=== PATIENT | female | born 1935 | race Caucasian/White ===

== ENCOUNTER 2017-06-11 04:36 | Outpatient (CLI) | payer MEDICARE, MEDICAID | END 2017-06-11 23:59 | disposition home or self-care (01) | LOC: DIABETIC 04:36 | PROVIDERS: ATTEND Internal Medicine | DX: E11.21 Type 2 diabetes mellitus with diabetic nephropathy (principal); E11.22 Type 2 diabetes mellitus with diabetic chronic kidney disease; I12.9 Hypertensive chronic kidney disease with stage 1 through stage 4 chronic kidney disease, or unspecified chronic kidney disease; N18.9 Chronic kidney disease, unspecified; Z85.828 Personal history of other malignant neoplasm of skin | CPT/HCPCS: G0108 ==

== ENCOUNTER 2017-09-20 01:49 | Outpatient (CLI) | payer MEDICARE, MEDICAID | END 2017-09-20 23:59 | disposition home or self-care (01) | LOC: DIABETIC 01:49 | PROVIDERS: ATTEND Internal Medicine | DX: E11.65 Type 2 diabetes mellitus with hyperglycemia (principal); E11.22 Type 2 diabetes mellitus with diabetic chronic kidney disease; E11.21 Type 2 diabetes mellitus with diabetic nephropathy; I12.9 Hypertensive chronic kidney disease with stage 1 through stage 4 chronic kidney disease, or unspecified chronic kidney disease; N18.9 Chronic kidney disease, unspecified | CPT/HCPCS: G0108 ==

== ENCOUNTER 2018-06-24 19:13 | Emergency (ER) | payer MEDICARE, MEDICAID ==
[~2018-06-24] VITALS: Ht 160 cm; Wt 73.0 kg
[2018-06-24 19:26] VITALS: BP 160/82
--- NOTE | 2018-06-24 21:22 | NUR ---
pt is resting quietly on gurney, c/o itching and burning to LLQ "under my panus...I have been losing weight", waiting to be evaluated by provider
[2018-06-24] MEDS ORDERED: clotrimazole topical cream 15gm tube TP SCH (21:30)
[2018-06-24] MEDS ORDERED: clotrimazole topical cream 15gm tube TP ONE (21:30)
[2018-06-24] MEDS ORDERED: [UNRECOGNIZED DRUG - CODE] TOP (21:31)
== END 2018-06-24 21:42 | disposition home or self-care (01) ==
LOC: ER 19:13
DX: M79.3 Panniculitis, unspecified (principal); E11.9 Type 2 diabetes mellitus without complications; Z88.1 Allergy status to other antibiotic agents; Z91.048 Other nonmedicinal substance allergy status; Z88.8 Allergy status to other drugs, medicaments and biological substances; Z79.899 Other long term (current) drug therapy
CPT/HCPCS: 99282

== ENCOUNTER 2018-08-17 09:50 | Emergency (ER) | payer OTHER, MEDICARE, MEDICAID ==
[~2018-08-17] VITALS: Ht 160 cm; Wt 69.5 kg
[~2018-08-17 09:50] MED LIST: [UNRECOGNIZED DRUG - CODE] TOP
[2018-08-17 10:18] VITALS: BP 162/64
[2018-08-17] MEDS ORDERED: HYDR-4383 PO (11:28)
== END 2018-08-17 11:35 | disposition home or self-care (01) ==
LOC: ER 09:50
DX: S16.1XXA Strain of muscle, fascia and tendon at neck level, initial encounter (principal); E11.9 Type 2 diabetes mellitus without complications; Z88.1 Allergy status to other antibiotic agents; Z88.8 Allergy status to other drugs, medicaments and biological substances; V49.88XA Car occupant (driver) (passenger) injured in other specified transport accidents, initial encounter; Y93.89 Activity, other specified; Y92.413 State road as the place of occurrence of the external cause; Y99.9 Unspecified external cause status
CPT/HCPCS: 72125; 93005; 99284

== ENCOUNTER 2019-10-20 14:39 | Emergency (ER) | payer MEDICARE, MEDICAID ==
[~2019-10-20] VITALS: Ht 160 cm; Wt 65.0 kg
[~2019-10-20 14:39] MED LIST changes: +HYDR-4383 PO
--- NOTE | 2019-10-20 14:58 | NUR ---
Cold pack placed to forehead as ordered; Pt refused ice for knees.
[2019-10-20] MEDS ORDERED: TETanus/Pertussis (Acell)/Diphther VAC/PF (Tdap-Adult) 0.5ml syringe IMVAC ONE (16:15)
[2019-10-20] MEDS ORDERED: acetaminophen 325mg tablet PO ONE (16:15)
[2019-10-20 16:28] VITALS: BP 167/67
== END 2019-10-20 16:41 | disposition home or self-care (01) ==
LOC: ER 14:39
DX: S61.411A Laceration without foreign body of right hand, initial encounter (principal); S00.83XA Contusion of other part of head, initial encounter; E11.9 Type 2 diabetes mellitus without complications; Z88.2 Allergy status to sulfonamides; Z88.8 Allergy status to other drugs, medicaments and biological substances; Z79.899 Other long term (current) drug therapy; W18.39XA Other fall on same level, initial encounter; Y93.89 Activity, other specified; Y92.89 Other specified places as the place of occurrence of the external cause; Y99.8 Other external cause status
CPT/HCPCS: 70450; 72125; 90471; 90715; 99285

== ENCOUNTER 2020-11-12 16:38 | Emergency (ER) | payer MEDICARE, MEDICAID ==
[~2020-11-12 16:38] MED LIST changes: +AMIT-1 PO; +AMLO10TA13 PO; +ASPI-1397 PO; +ATOR40TA72 PO; +CALC1TAB PO; +CITA20TA27 PO; +CYAN50009 PO; +DOCU100C40 PO; +FERR-39 PO; +FLUT16SP8 BOTHNARES; -HYDR-4383 PO; +LEVO50TA8 PO; +LINA5TAB4 PO; +LORA10TA7 PO; +LUTE1CAP5 PO; +METF-436 PO; +MULT-1141 PO; +OMEG-133 PO; +OMEP-50 PO; +OXYB10TA4 PO; +PROP10DR4 OP; +VALS160T30 PO; -[UNRECOGNIZED DRUG - CODE] TOP
[2020-11-12 17:27] LABS: BASOPHILS % (AUTO) 0.5 % (0-1); EOSINOPHILS # (AUTO) 0.2 X10'3 (0-0.9); EOSINOPHILS % (AUTO) 1.9 % (0-6); HEMATOCRIT 37.4 % (35.0-45.0); HEMOGLOBIN 12.1 g/dl (12.0-16.0); LYMPHOCYTES % (AUTO) 32.9 % (21-51); MEAN CORPUSCULAR HEMOGLOBIN 26.8 PG (27.0-31.0); MEAN CORPUSCULAR HGB CONC 32.4 g/dL (33.0-36.5); MEAN CORPUSCULAR VOLUME 82.9 FL (78-98); MEAN PLATELET VOLUME 7.4 FL (7.4-10.4); MONOCYTES # (AUTO) 0.8 X10'3 (0-0.9); MONOCYTES % (AUTO) 8.1 % (2-12); NEUTROPHILS # (AUTO) 5.2 X10'3 (1.8-7.7); NEUTROPHILS % (AUTO) 56.6 % (42-75); PLATELET COUNT 273 X10'3 (140-440); RED BLOOD COUNT 4.51 X10'6 (4.20-5.60); RED CELL DISTRIBUTION WIDTH 15.5 % (11.5-14.5); WHITE BLOOD COUNT 9.3 X10'3 (4.5-11.0)
[2020-11-12 17:46] LABS: ALANINE AMINOTRANSFERASE 15 U/L (12-78); ALBUMIN 3.6 G/DL (3.4-5.0); ALBUMIN/GLOBULIN RATIO 0.9 (1.1-1.5); ALKALINE PHOSPHATASE 75 IU/L (46-116); ANION GAP 12 (8-16); ASPARTATE AMINO TRANSFERASE 15 U/L (10-37); BILIRUBIN,TOTAL 0.3 MG/DL (0.1-1.0); BLOOD UREA NITROGEN 29 MG/DL (7-18); BUN/CREATININE RATIO 23.4 (6.6-38.0); CALCIUM 10.8 MG/DL (8.5-10.1); CHLORIDE 105 MMOL/L (99-107); CREATININE 1.24 MG/DL (0.40-0.90); GLUCOSE 139 MG/DL (70-104); POTASSIUM 4.9 MMOL/L (3.5-5.1); SODIUM 140 MMOL/L (135-145); TOTAL CARBON DIOXIDE 23.2 MMOL/L (24-32); TOTAL PROTEIN 7.5 G/DL (6.4-8.2); eGFR 41 ML/MIN
[2020-11-12 18:11] VITALS: BP 139/69
== END 2020-11-12 18:53 | disposition home or self-care (01) ==
LOC: ER 16:40
DX: E11.22 Type 2 diabetes mellitus with diabetic chronic kidney disease (principal); N18.32 Chronic kidney disease, stage 3b; Z79.82 Long term (current) use of aspirin; Z79.899 Other long term (current) drug therapy; Z88.2 Allergy status to sulfonamides; Z91.048 Other nonmedicinal substance allergy status; Z88.8 Allergy status to other drugs, medicaments and biological substances
CPT/HCPCS: 36415; 80053; 85025; 99284

== ENCOUNTER → 2021-02-08 | Emergency (ER) | payer MEDICARE, MEDICAID ==
[~2021-02-08] VITALS: Ht 162.6 cm; Wt 65.6 kg
[~2021-02-08] MED LIST changes: +CEPH-585 PO; +CefTRIAXone 2gm/D5W 50ml BAG 50 ML IV ONE; +metoprolol tartrate 50mg tablet PO ONE; +normal saline 1000ML IV soln IVB ONE
[2021-02-08 18:02] LABS: CLARITY,URINE SLIGHTLY CLOUDY (Clear); COLOR,URINE STRAW (Yellow); GLUCOSE, URINE NEGATIVE (Neg); KETONES,URINE NEGATIVE (Neg); LEUKOCYTE ESTERASE ,URINE LARGE (Neg); NITRITES, URINE NEGATIVE (Neg); OCCULT BLOOD,URINE SMALL (Neg); PH,URINE 5.5 (4.8-8.0); PROTEIN,URINE NEGATIVE (Neg); UA COLLECTION TYPE CLN CATCH MIDSTREAM; UROBILINOGEN,URINE 0.2 E.U/dL (0.2-1.0)
[2021-02-08 18:05] LABS: BASOPHILS # (AUTO) 0.1 X10'3 (0-0.2); BASOPHILS % (AUTO) 0.9 % (0-1); EOSINOPHILS # (AUTO) 0.2 X10'3 (0-0.9); EOSINOPHILS % (AUTO) 2.3 % (0-6); HEMATOCRIT 36.3 % (35.0-45.0); LYMPHOCYTES # (AUTO) 2.9 X10'3 (1.1-4.8); LYMPHOCYTES % (AUTO) 27.7 % (21-51); MEAN CORPUSCULAR HEMOGLOBIN 27.7 PG (27.0-31.0); MEAN CORPUSCULAR HGB CONC 33.2 g/dL (33.0-36.5); MEAN CORPUSCULAR VOLUME 83.4 FL (78-98); MEAN PLATELET VOLUME 7.3 FL (7.4-10.4); MONOCYTES % (AUTO) 9.2 % (2-12); NEUTROPHILS # (AUTO) 6.3 X10'3 (1.8-7.7); NEUTROPHILS % (AUTO) 59.9 % (42-75); PLATELET COUNT 272 X10'3 (140-440); RED BLOOD COUNT 4.35 X10'6 (4.20-5.60); RED CELL DISTRIBUTION WIDTH 14.5 % (11.5-14.5); WHITE BLOOD COUNT 10.5 X10'3 (4.5-11.0)
[2021-02-08 18:10] LABS: BACTERIA,URINE 1+ /HPF (Neg); MUCUS STRANDS NONE SEEN /LPF (Neg); SQUAMOUS EPITHELIAL CELL,UR FEW /LPF (FEW); WBC,URINE TNTC /HPF (0-4)
[2021-02-08 18:19] LABS: ALANINE AMINOTRANSFERASE 23 U/L (12-78); ALBUMIN 3.4 G/DL (3.4-5.0); ALKALINE PHOSPHATASE 86 IU/L (46-116); ANION GAP 9 (8-16); ASPARTATE AMINO TRANSFERASE 16 U/L (10-37); BILIRUBIN,TOTAL 0.2 MG/DL (0.1-1.0); BLOOD UREA NITROGEN 29 MG/DL (7-18); BUN/CREATININE RATIO 26.4 (6.6-38.0); CALCIUM 9.9 MG/DL (8.5-10.1); CHLORIDE 107 MMOL/L (99-107); GLUCOSE 147 MG/DL (70-104); POTASSIUM 4.9 MMOL/L (3.5-5.1); SODIUM 142 MMOL/L (135-145); TOTAL CARBON DIOXIDE 26.4 MMOL/L (24-32); TOTAL PROTEIN 6.9 G/DL (6.4-8.2); eGFR 47 ML/MIN
[2021-02-08 22:22] VITALS: BP 204/85
== END | disposition home or self-care (01) ==
LOC: ER 16:37
DX: N39.0 Urinary tract infection, site not specified (principal); R30.0 Dysuria; R10.30 Lower abdominal pain, unspecified; I10 Essential (primary) hypertension; E11.9 Type 2 diabetes mellitus without complications; Z87.440 Personal history of urinary (tract) infections; Z85.9 Personal history of malignant neoplasm, unspecified; Z88.1 Allergy status to other antibiotic agents; Z88.8 Allergy status to other drugs, medicaments and biological substances; Z79.82 Long term (current) use of aspirin; Z79.2 Long term (current) use of antibiotics; Z79.899 Other long term (current) drug therapy
CPT/HCPCS: 36415; 80053; 81001; 82948; 85025; 87088; 96374; 99283; J0696; J7030

== ENCOUNTER 2021-04-05 09:56 | Emergency (ER) | payer MEDICARE, MEDICAID ==
[~2021-04-05] VITALS: Ht 162.6 cm; Wt 69.5 kg
[~2021-04-05 09:56] MED LIST changes: -CefTRIAXone 2gm/D5W 50ml BAG 50 ML IV ONE; -metoprolol tartrate 50mg tablet PO ONE; -normal saline 1000ML IV soln IVB ONE
[2021-04-05 10:05] VITALS: BP 157/65
[2021-04-05] MEDS ORDERED: LIDOcaine 4% (40 mg/ml) topical solution 50ml TP ONE (10:20)
[2021-04-05] MEDS ORDERED: LIDOcaine/PRILOcaine 5gm cream TP ONE (11:15)
== END 2021-04-05 12:07 | disposition home or self-care (01) ==
LOC: ER 09:57
DX: S61.411A Laceration without foreign body of right hand, initial encounter (principal); I10 Essential (primary) hypertension; E11.9 Type 2 diabetes mellitus without complications; Z87.440 Personal history of urinary (tract) infections; Z85.9 Personal history of malignant neoplasm, unspecified; Z88.1 Allergy status to other antibiotic agents; Z88.8 Allergy status to other drugs, medicaments and biological substances; Z79.82 Long term (current) use of aspirin; Z79.2 Long term (current) use of antibiotics; Z79.899 Other long term (current) drug therapy; W18.30XA Fall on same level, unspecified, initial encounter; Y93.89 Activity, other specified; Y92.89 Other specified places as the place of occurrence of the external cause; Y99.8 Other external cause status
CPT/HCPCS: 12002; 99284

== ENCOUNTER 2021-05-08 08:42 | Emergency (ER) | payer MEDICARE, MEDICAID ==
[~2021-05-08] VITALS: Ht 160 cm; Wt 59.6 kg
[2021-05-08 08:50] VITALS: BP 143/71
[2021-05-08] MEDS ORDERED: LIDOcaine 2% 5ml jelly TOP ONE (11:15)
[2021-05-08] MEDS ORDERED: acetaminophen 325mg tablet PO ONE (12:00)
[2021-05-08] MEDS ORDERED: CEPH500C2 PO (13:53)
== END 2021-05-08 14:04 | disposition home or self-care (01) ==
LOC: ER 08:42
DX: S51.812A Laceration without foreign body of left forearm, initial encounter (principal); S00.83XA Contusion of other part of head, initial encounter; R51.9 Headache, unspecified; I10 Essential (primary) hypertension; E11.9 Type 2 diabetes mellitus without complications; Z87.440 Personal history of urinary (tract) infections; Z85.9 Personal history of malignant neoplasm, unspecified; Z88.1 Allergy status to other antibiotic agents; Z88.8 Allergy status to other drugs, medicaments and biological substances; Z79.82 Long term (current) use of aspirin; Z79.2 Long term (current) use of antibiotics; Z79.899 Other long term (current) drug therapy; W06.XXXA Fall from bed, initial encounter; Y93.89 Activity, other specified; Y92.89 Other specified places as the place of occurrence of the external cause; Y99.8 Other external cause status
CPT/HCPCS: 70450; 72125; 99285

== ENCOUNTER 2022-02-13 14:24 | Emergency (ER) | payer MEDICARE, MEDICAID ==
[~2022-02-13] VITALS: Ht 160 cm; Wt 70.5 kg
[~2022-02-13 14:24] MED LIST changes: -CEPH-585 PO; -OMEP-50 PO; +OMEP20CA16 PO
[2022-02-13 14:31] VITALS: BP 129/62
[2022-02-13] MEDS ORDERED: acetaminophen 325mg tablet PO ONE (17:00)
[2022-02-13] MEDS ORDERED: LIDOcaine/PRILOcaine 5gm cream TP ONE (17:00)
[2022-02-13] MEDS ORDERED: ACET-1025 PO (17:57)
[2022-02-13] MEDS ORDERED: LIDO30CR TOP (17:57)
== END 2022-02-13 18:18 | disposition home or self-care (01) ==
LOC: ER 14:25
DX: S80.02XA Contusion of left knee, initial encounter (principal); S80.01XA Contusion of right knee, initial encounter; S20.212A Contusion of left front wall of thorax, initial encounter; I10 Essential (primary) hypertension; E11.9 Type 2 diabetes mellitus without complications; Z88.2 Allergy status to sulfonamides; Z79.82 Long term (current) use of aspirin; Z88.8 Allergy status to other drugs, medicaments and biological substances; Z79.1 Long term (current) use of non-steroidal anti-inflammatories (NSAID); Z79.899 Other long term (current) drug therapy; Z87.448 Personal history of other diseases of urinary system; Z79.2 Long term (current) use of antibiotics; W18.39XA Other fall on same level, initial encounter; Y92.89 Other specified places as the place of occurrence of the external cause; Y93.89 Activity, other specified; Y99.8 Other external cause status
CPT/HCPCS: 74176; 99284

== ENCOUNTER 2022-05-10 20:52 | Emergency (ER) | payer MEDICARE, MEDICAID ==
[~2022-05-10] VITALS: Ht 160 cm; Wt 69.5 kg
[~2022-05-10 20:52] MED LIST changes: +LIDO30CR TOP
[2022-05-10 22:04] LABS: ALANINE AMINOTRANSFERASE 27 U/L (12-78); ALBUMIN 3.5 G/DL (3.4-5.0); ALBUMIN/GLOBULIN RATIO 0.9 (1.1-1.5); ALKALINE PHOSPHATASE 89 IU/L (46-116); ANION GAP 13 (8-16); ASPARTATE AMINO TRANSFERASE 20 U/L (10-37); BILIRUBIN,TOTAL 0.2 MG/DL (0.1-1.0); BLOOD UREA NITROGEN 30 MG/DL (7-18); BUN/CREATININE RATIO 23.4 (6.6-38.0); CALCIUM 10.9 MG/DL (8.5-10.1); CHLORIDE 105 MMOL/L (99-107); CREATININE 1.28 MG/DL (0.40-0.90); GLUCOSE 174 MG/DL (70-104); POTASSIUM 3.8 MMOL/L (3.5-5.1); SODIUM 141 MMOL/L (135-145); TOTAL CARBON DIOXIDE 23.5 MMOL/L (24-32); TOTAL PROTEIN 7.2 G/DL (6.4-8.2); eGFR 40 ML/MIN
[2022-05-10 22:12] LABS: BASOPHILS # (AUTO) 0.1 X10'3 (0-0.2); BASOPHILS % (AUTO) 0.8 % (0-1); EOSINOPHILS # (AUTO) 0.2 X10'3 (0-0.9); EOSINOPHILS % (AUTO) 2.1 % (0-6); HEMATOCRIT 35.7 % (35.0-45.0); HEMOGLOBIN 11.9 g/dl (12.0-16.0); LYMPHOCYTES # (AUTO) 3.6 X10'3 (1.1-4.8); LYMPHOCYTES % (AUTO) 37.7 % (21-51); MEAN CORPUSCULAR HEMOGLOBIN 28.3 PG (27.0-31.0); MEAN CORPUSCULAR HGB CONC 33.4 g/dL (33.0-36.5); MEAN CORPUSCULAR VOLUME 84.7 FL (78-98); MEAN PLATELET VOLUME 7.5 FL (7.4-10.4); MONOCYTES # (AUTO) 0.9 X10'3 (0-0.9); MONOCYTES % (AUTO) 9.4 % (2-12); NEUTROPHILS # (AUTO) 4.8 X10'3 (1.8-7.7); PLATELET COUNT 254 X10'3 (140-440); RED BLOOD COUNT 4.22 X10'6 (4.20-5.60); RED CELL DISTRIBUTION WIDTH 14.8 % (11.5-14.5); WHITE BLOOD COUNT 9.6 X10'3 (4.5-11.0)
[2022-05-10 22:40] LABS: CLARITY,URINE SLIGHTLY CLOUDY (Clear); COLOR,URINE YELLOW (Yellow); GLUCOSE, URINE NEGATIVE (Neg); KETONES,URINE NEGATIVE (Neg); LEUKOCYTE ESTERASE ,URINE TRACE (Neg); NITRITES, URINE POSITIVE (Neg); OCCULT BLOOD,URINE NEGATIVE (Neg); PH,URINE 5.5 (4.8-8.0); PROTEIN,URINE TRACE mg/dl (Neg); UROBILINOGEN,URINE 0.2 E.U/dL (0.2-1.0)
[2022-05-10 22:46] LABS: UA COLLECTION TYPE CLN CATCH MIDSTREAM
[2022-05-10 22:47] LABS: BACTERIA,URINE 4+ /HPF (Neg); RBC,URINE 0-2 /HPF (0-2); SQUAMOUS EPITHELIAL CELL,UR FEW /LPF (FEW); WBC CLUMPS,URINE MODERATE /HPF (NEGATIVE)
[2022-05-10] MEDS ORDERED: CefTRIAXone 2gm/D5W 50ml BAG 50 ML IV ONE (23:35)
[2022-05-11 00:47] VITALS: BP 170/71
[2022-05-11] MEDS ORDERED: LIDOcaine Viscous 15ml cup MM ONE (01:15)
[2022-05-11] MEDS ORDERED: famotidine/PF 10 mg/ml inj IV ONE (01:15)
--- NOTE | 2022-05-11 01:19 | NUR ---
2ND TROP SENT TO LAB
--- NOTE | 2022-05-11 01:26 | NUR ---
ivp and po med given by dedrick hathaway
[2022-05-11] MEDS ORDERED: CEPH-585 PO (01:59)
[2022-05-11] MEDS ORDERED: FAMO-128 PO (01:59)
--- NOTE | 2022-05-11 02:09 | NUR ---
iv dc'd pt being discharged dressing apllied
== END 2022-05-11 02:11 | disposition home or self-care (01) ==
LOC: ER 20:53
DX: N39.0 Urinary tract infection, site not specified (principal); K21.9 Gastro-esophageal reflux disease without esophagitis; I10 Essential (primary) hypertension; E11.9 Type 2 diabetes mellitus without complications; Z87.448 Personal history of other diseases of urinary system; Z88.2 Allergy status to sulfonamides; Z88.8 Allergy status to other drugs, medicaments and biological substances; Z79.899 Other long term (current) drug therapy; Z79.82 Long term (current) use of aspirin; Z79.1 Long term (current) use of non-steroidal anti-inflammatories (NSAID); Z79.2 Long term (current) use of antibiotics
CPT/HCPCS: 36415; 71045; 80053; 81001; 83605; 84484; 85025; 87040; 87077; 87088; 87186; 93005; 96365; 96375; 99285; J0696; J3490; 96374

== ENCOUNTER → 2023-06-19 | Emergency (ER) | payer MEDICARE, MEDICAID ==
[~2023-06-19] VITALS: Ht 162.6 cm; Wt 74.1 kg
[~2023-06-19] MED LIST changes: +FAMO-128 PO
[2023-06-19 18:32] VITALS: BP 156/71; PULSE 74; RESP 16; TEMP 97.7; O2SAT 100
== END | disposition home or self-care (01) ==
LOC: ER 14:40
DX: S00.03XA Contusion of scalp, initial encounter (principal); S20.419A Abrasion of unspecified back wall of thorax, initial encounter; W19.XXXA Unspecified fall, initial encounter; Y93.89 Activity, other specified; Y92.89 Other specified places as the place of occurrence of the external cause; Y99.8 Other external cause status
CPT/HCPCS: 72070; 72100; 99284